=== PATIENT | female | born 1950 | race Two or more races ===

== ENCOUNTER 2019-07-17 06:25 | Day surgery (SDC) | payer OTHER | END 2019-07-17 10:25 | disposition home or self-care (01) | LOC: AMB-ENDOS 06:25 | DX: K57.30 Diverticulosis of large intestine without perforation or abscess without bleeding (principal); K64.4 Residual hemorrhoidal skin tags ==

== ENCOUNTER → 2019-08-24 | Emergency (ER) | payer OTHER ==
[~2019-08-24] VITALS: Ht 157.5 cm; Wt 59.4 kg
[~2019-08-24] MED LIST: ACID CONTROL150 MG; AZELASTINE137 MCG/0.; CARAFATE1 GM; COZAAR100 MG; DEXILANT60 MG; JANUMET 50-5001 EACH; PANTOPRAZOLE SO20 MG; RESTORIL15 M1; SIMVASTATIN40 MG; SYNTHROID88 MCG
== END | disposition home or self-care (01) ==
LOC: ER 16:41
DX: K57.30 Diverticulosis of large intestine without perforation or abscess without bleeding (principal); K44.9 Diaphragmatic hernia without obstruction or gangrene; K21.9 Gastro-esophageal reflux disease without esophagitis

== ENCOUNTER 2019-09-04 05:20 | Day surgery (SDC) | payer OTHER | END 2019-09-04 10:35 | disposition home or self-care (01) | LOC: AMB-ENDOS 05:20 | DX: D13.0 Benign neoplasm of esophagus (principal); D13.2 Benign neoplasm of duodenum; K29.50 Unspecified chronic gastritis without bleeding; K44.9 Diaphragmatic hernia without obstruction or gangrene ==

== ENCOUNTER 2021-07-25 18:28 | Emergency (ER) | payer OTHER ==
[~2021-07-25] VITALS: Ht 157.5 cm; Wt 60.3 kg
[2021-07-25] MEDS ORDERED: SIMVASTATIN20 MG PO (18:43)
[2021-07-25] MEDS ORDERED: GABAPENTIN400 MG PO (18:43)
[2021-07-25] MEDS ORDERED: NORVASC2.5 MG PO (18:43)
[2021-07-25] MEDS ORDERED: JANUMET 50-1,01 EACH PO (18:43)
[2021-07-25] MEDS ORDERED: LOSARTAN POTAS100 MG PO (18:43)
[2021-07-25] MEDS ORDERED: RESTORIL15 MG PO (18:43)
[2021-07-25] MEDS ORDERED: PROAIR HFA8.5 GM (18:43)
[2021-07-25] MEDS ORDERED: OMEGA FISH O PO (18:44)
[2021-07-25] MEDS ORDERED: ALLERGY RELIEF10 M1 PO (18:44)
[2021-07-25] MEDS ORDERED: VITAMIN D310 MCG/1 M PO (18:44)
[2021-07-25] MEDS ORDERED: FLONASE16 GM NS (18:44)
[2021-07-25] MEDS ORDERED: ETHYL ALCOHOL TP (18:44)
[2021-07-25] MEDS ORDERED: VITAMIN C500 M1 PO (18:44)
[2021-07-25] MEDS ORDERED: HYDROCHLOROTH12.5 MG PO (18:44)
[2021-07-25] MEDS ORDERED: PEPCID AC20 MG PO (23:20)
[2021-07-25] MEDS ORDERED: FLAGYL500MG PO (23:20)
[2021-07-25] MEDS ORDERED: DICY20TA PO (23:20)
[2021-07-25] MEDS ORDERED: CIPRO500 MG PO (23:20)
== END 2021-07-25 23:38 | disposition home or self-care (01) ==
LOC: ER 18:28
DX: R10.32 Left lower quadrant pain (principal)

== ENCOUNTER 2021-08-07 13:39 | Emergency (ER) | payer OTHER ==
[~2021-08-07] VITALS: Ht 157.5 cm; Wt 60.3 kg
[~2021-08-07 13:39] MED LIST changes: +ALLERGY RELIEF10 M1 PO; +CIPRO500 MG PO; +DICY20TA PO; +ETHYL ALCOHOL TP; +FLAGYL500MG PO; +FLONASE16 GM NS; +GABAPENTIN400 MG PO; +HYDROCHLOROTH12.5 MG PO; +JANUMET 50-1,01 EACH PO; +LOSARTAN POTAS100 MG PO; +NORVASC2.5 MG PO; +OMEGA FISH O PO; +PEPCID AC20 MG PO; +PROAIR HFA8.5 GM; +RESTORIL15 MG PO; +SIMVASTATIN20 MG PO; +VITAMIN C500 M1 PO; +VITAMIN D310 MCG/1 M PO
== END 2021-08-07 21:04 | disposition home or self-care (01) ==
LOC: ER 13:39
DX: R10.13 Epigastric pain (principal); T50.995A Adverse effect of other drugs, medicaments and biological substances, initial encounter; Y92.89 Other specified places as the place of occurrence of the external cause

== ENCOUNTER 2021-09-01 06:44 | Day surgery (SDC) | payer OTHER | END 2021-09-01 10:30 | disposition home or self-care (01) | LOC: AMB-ENDOS 06:44 | PROVIDERS: ATTEND Surgery | DX: K62.89 Other specified diseases of anus and rectum (principal) ==

== ENCOUNTER 2021-11-10 09:30 | Inpatient (IN) | payer OTHER ==
[~2021-11-10] VITALS: Ht 157.5 cm; Wt 60.8 kg
[2021-11-17] MEDS ORDERED: ANTI-GAS166 MG PO (09:54)
[2021-11-17] MEDS ORDERED: HYOSCYAMINE0.125 M1 SL (09:54)
[2021-11-17] MEDS ORDERED: NEURONTIN300 MG PO (09:56)
[2021-11-17] MEDS ORDERED: ULTRACET PO (09:58)
== END 2021-11-17 13:29 | disposition home or self-care (01) | DRG 331 ==
LOC: O/R 11-14 05:52 → SURH 11-14 05:52 → SURG 11-14 05:52 → SURH 11-14 07:00 → O/R 11-14 09:48 → SURH 11-14 14:48 → SURG 11-14 18:02
PROVIDERS: ADMIT Surgery; ATTEND Surgery
PROC: 0DTN4ZZ Resection of Sigmoid Colon, Percutaneous Endoscopic Approach (ICD-10-PCS; 2021-11-14)
PROC: 0DQ84ZZ Repair Small Intestine, Percutaneous Endoscopic Approach (ICD-10-PCS; 2021-11-14)
PROC: 4A12X4Z Monitoring of Cardiac Electrical Activity, External Approach (ICD-10-PCS; 2021-11-14)
PROC: 4A033R1 Measurement of Arterial Saturation, Peripheral, Percutaneous Approach (ICD-10-PCS; 2021-11-14)
PROC: 3E0F7SF Introduction of Other Gas into Respiratory Tract, Via Natural or Artificial Opening (ICD-10-PCS; 2021-11-14)
PROC: 3E0F7GC Introduction of Other Therapeutic Substance into Respiratory Tract, Via Natural or Artificial Opening (ICD-10-PCS; 2021-11-14)
PROC: 0DTP4ZZ Resection of Rectum, Percutaneous Endoscopic Approach (ICD-10-PCS; principal; 2021-11-14 07:00)
DX: K57.32 Diverticulitis of large intestine without perforation or abscess without bleeding (principal); K21.9 Gastro-esophageal reflux disease without esophagitis; K29.00 Acute gastritis without bleeding; K59.09 Other constipation; K66.0 Peritoneal adhesions (postprocedural) (postinfection); J45.20 Mild intermittent asthma, uncomplicated; G47.00 Insomnia, unspecified; E11.9 Type 2 diabetes mellitus without complications; Z79.4 Long term (current) use of insulin; E78.5 Hyperlipidemia, unspecified; I11.9 Hypertensive heart disease without heart failure; Z20.822 Contact with and (suspected) exposure to COVID-19